=== PATIENT | male | born 1955 | race American Indian/Alaskan Native ===

== ENCOUNTER 2016-09-25 00:26 | Inpatient (IN) | payer OTHER ==
[2016-09-25] MEDS ORDERED: CATAPRES ONE (01:01)
[2016-09-25] MEDS ORDERED: CATAPRES PO ONE (01:22)
[2016-09-25 01:37] LABS: Basophils % (Auto) 1.3 % (0.0-1.8); Eosinophils % (Auto) 4.4 % (0.0-4.3); Hematocrit 43.2 % (35.5-45.6); Hemoglobin 14.3 gm/dl (11.8-15.2); Mean Corpuscular HGB Conc 33 % (32-34); Mean Corpuscular Hemoglobin 28 pg (28-32); Mean Corpuscular Volume 84 fl (84-94); Platelet Count 151 K/mm3 (140-440); Red Blood Count 5.15 M/mm3 (3.65-5.03); Red Cell Distribution Width 14.2 % (13.2-15.2); White Blood Count 3.1 K/mm3 (4.5-11.0)
[2016-09-25 01:57] LABS: Anion Gap 18 mmol/L; BUN/Creatinine Ratio 10.83; Blood Urea Nitrogen 13 mg/dL (9-20); Calcium 9.3 mg/dL (8.4-10.2); Carbon Dioxide 28 mmol/L (22-30); Chloride 100.8 mmol/L (98-107); Glucose 95 mg/dL (75-100); Potassium 4.3 mmol/L (3.6-5.0); Sodium 142 mmol/L (137-145)
[2016-09-25 03:13] LABS: Bilirubin,Urine NEG (Negative); Blood,Urine NEG (Negative); Ketones,Urine NEG (Negative); Leukocyte Esterase,Urine NEG (Negative); Mucus,Urine FEW /HPF; Nitrite,Urine NEG (Negative); Protein,Urine <15 mg/dL mg/dL (Negative); RBC,Urine < 1.0 /HPF (0.0-6.0); Urobilinogen,Urine < 2.0 mg/dL (<2.0); WBC,Urine < 1.0 /HPF (0.0-6.0)
[2016-09-25] MEDS ORDERED: ANTIVERT PO ONE (07:39)
--- NOTE | 2016-09-25 07:41 | Emergency Department Report ---
ED General Adult HPI - General Chief complaint: Dizziness Stated complaint: POSS HIGH BP Time Seen by Provider: 09/25/16 07:29 Source: patient, RN notes reviewed Mode of arrival: Ambulatory Limitations: No Limitations - History of Present Illness Initial comments: This is a 61-year-old male. He is previously unknown to me. He has a past medical history of hypertension. He takes HCTZ, atenolol. Patient typically follows with the [facility]. The patient presents to the ER with complaint of lightheadedness, dizziness, near syncope. There is no headache, neck pain, chest pain, abdominal pain or shortness of breath. There is no leg pain or leg swelling. No recent trips greater than 4 hours. No recent hospital admissions. He reports his sensation of lightheadedness and dizziness feels like "spinning." He further reports that his symptoms started this past Saturday after he purchased an [id number] supplemental herbal tea; nuwati tea. -: Gradual Severity scale (0 -10): 3 Consistency: intermittent Improves with: rest Worsens with: movement Associated Symptoms: syncope - Related Data Home Medications Medication Instructions Recorded Confirmed Last Taken Aspirin [Adult Low Dose Aspirin EC] 81 mg PO DAILY 09/25/16 09/25/16 09/24/16 Atenolol [Tenormin] 50 mg PO DAILY 09/25/16 09/25/16 09/24/16 Losartan [Cozaar] 100 mg PO QDAY 09/25/16 09/25/16 09/24/16 Tamsulosin [Flomax] 0.4 mg PO QDAY 09/25/16 09/25/16 09/24/16 hydrALAZINE [Apresoline] 75 mg PO BID 09/25/16 09/25/16 09/24/16 Allergies Allergy/AdvReac Type Severity Reaction Status Date / Time No Known Allergies Allergy Unverified 09/25/16 00:38 ED Review of Systems ROS: Stated complaint: POSS HIGH BP Other details as noted in HPI Constitutional: malaise. denies: fever Eyes: denies: eye discharge ENT: denies: throat pain Respiratory: denies: orthopnea Cardiovascular: syncope Gastrointestinal: denies: vomiting Genitourinary: denies: dysuria Musculoskeletal: denies: back pain Skin: denies: lesions Neurological: headache, abnormal gait, vertigo Psychiatric: denies: anxiety ED Past Medical Hx - Past Medical History Previous Medical History?: Yes Hx Hypertension: Yes Additional medical history: prostate - Surgical History Past Surgical History?: Yes Additional Surgical History: left rotator cuff - Social History Smoking Status: Never Smoker Substance Use Type: None - Medications Home Medications: Home Medications Medication Instructions Recorded Confirmed Last Taken Type Aspirin [Adult Low Dose Aspirin EC] 81 mg PO DAILY 09/25/16 09/25/16 09/24/16 History Atenolol [Tenormin] 50 mg PO DAILY 09/25/16 09/25/16 09/24/16 History Losartan [Cozaar] 100 mg PO QDAY 09/25/16 09/25/16 09/24/16 History Tamsulosin [Flomax] 0.4 mg PO QDAY 09/25/16 09/25/16 09/24/16 History hydrALAZINE [Apresoline] 75 mg PO BID 09/25/16 09/25/16 09/24/16 History ED Physical Exam - General Limitations: No Limitations General appearance: alert, in no apparent distress - Head Head exam: Present: atraumatic, normocephalic - Eye Eye exam: Present: normal appearance, PERRL, EOMI. Absent: nystagmus - ENT ENT exam: Present: normal exam, normal orophraynx, mucous membranes moist, TM's normal bilaterally, normal external ear exam - Neck Neck exam: Present: normal inspection, full ROM. Absent: tenderness, meningismus - Respiratory Respiratory exam: Present: normal lung sounds bilaterally. Absent: respiratory distress, wheezes, rales, rhonchi, stridor, chest wall tenderness, accessory muscle use, decreased breath sounds, prolonged expiratory - Cardiovascular Cardiovascular Exam: Present: regular rate, normal rhythm, normal heart sounds. Absent: bradycardia, tachycardia, irregular rhythm, systolic murmur, diastolic murmur, rubs, gallop - GI/Abdominal GI/Abdominal exam: Present: soft, normal bowel sounds. Absent: distended, tenderness, guarding, rebound, rigid, pulsatile mass - Rectal Rectal exam: Present: deferred - Extremities Exam Extremities exam: Present: normal inspection, full ROM, normal capillary refill. Absent: pedal edema, joint swelling, calf tenderness - Back Exam Back exam: Present: normal inspection, full ROM. Absent: tenderness, CVA tenderness (R), CVA tenderness (L), muscle spasm, paraspinal tenderness, vertebral tenderness - Neurological Exam Neurological exam: Present: alert, oriented X3, normal gait (there is no pass pointing. Normal [id number]. Borderline positive Romberg examination. Unable to participate with [id number].), other (Extraocular movements intact. Tongue midline. No facial droop. Facial sensation intact to light touch in the V1, V2, V3 distribution bilaterally. 5 and 5 strength in 4 extremities.. Sensation is intact to light touch in 4 extremities.). Absent: motor sensory deficit - Psychiatric Psychiatric exam: Present: normal affect, normal mood - Skin Skin exam: Present: warm, dry, intact, normal color. Absent: rash ED Course Vital Signs 09/25/16 09/25/16 09/25/16 00:38 01:25 02:55 Temperature 98.4 F 98.0 F Pulse Rate 67 67 64 Respiratory 18 18 Rate Blood Pressure 191/119 191/119 131/101 O2 Sat by Pulse 98 97 Oximetry 09/25/16 09/25/16 09/25/16 08:12 08:45 11:20 Temperature 98.6 F Pulse Rate 78 Respiratory 20 Rate Blood Pressure 174/68 O2 Sat by Pulse 100 Oximetry - Reevaluation(s) Reevaluation #1: 09/25/16 08:21 differential diagnosis: Peripheral vertigo, central vertigo, PRESS, hypertensive urgency, herbal medication side effects Assessment and plan: 61-year-old male with complaint of vertigo, lightheadedness , ataxia, near syncope, quite hypertensive. No pulmonary embolus or DVT risk factors, low risk by well's criteria, has a GCS of 15, but walks with an unsteady gait. No recent ACS risk stratification or echocardiogram, patient indicates he is not taking his herbal supplementation for a few days, case was discussed with the [place] [facility], and into ingredients that they were concerned about were yohimbine (which can cause hypertension) and cava cava (which can be nephrotoxic). Given that patient has an abnormal EKG, near syncope, poorly controlled blood pressure, unsteady gait, patient will be admit to the hospital to exclude structural cardiac disease, obtain better blood pressure control, and exclude subacute stroke. The patient is not a TPA candidate because his symptoms have been present for greater than 4.5 hours. They have been present for a few days. Reevaluation #2: 09/25/16 08:27 Spoke with Ta at [facility]. Gave list of ingredidents in OTC Herbal product, Tea Pee. Request ot order AST and ALT. Spoke with Dr. Fish. d/w [facility] Miguel, who accepts patient to her service ED Medical Decision Making - Lab Data Result diagrams: 09/25/16 01:22 09/25/16 01:22 Vital Signs 09/25/16 09/25/16 09/25/16 00:38 01:25 02:55 Temperature 98.4 F 98.0 F Pulse Rate 67 67 64 Respiratory 18 18 Rate Blood Pressure 191/119 191/119 131/101 O2 Sat by Pulse 98 97 Oximetry 09/25/16 08:12 Temperature Pulse Rate Respiratory 20 Rate Blood Pressure O2 Sat by Pulse 100 Oximetry Lab Results 09/25/16 09/25/16 09/25/16 Range/Units 01:22 01:22 07:44 WBC 3.1 L (4.5-11.0) K/mm3 RBC 5.15 H (3.65-5.03) M/mm3 Hgb 14.3 (11.8-15.2) gm/dl Hct 43.2 (35.5-45.6) % MCV 84 (84-94) fl MCH 28 (28-32) pg MCHC 33 (32-34) % RDW 14.2 (13.2-15.2) % Plt Count 151 (140-440) K/mm3 Lymph % (Auto) 30.7 (13.4-35.0) % Rankin % (Auto) 14.5 H (0.0-7.3) % Eos % (Auto) 4.4 H (0.0-4.3) % Baso % (Auto) 1.3 (0.0-1.8) % Lymph # 1.0 L (1.2-5.4) K/mm3 Rankin # 0.5 (0.0-0.8) K/mm3 Eos # 0.1 (0.0-0.4) K/mm3 Baso # 0.0 (0.0-0.1) K/mm3 Seg Neutrophils % 49.1 (40.0-70.0) % Seg Neutrophils # 1.5 L (1.8-7.7) K/mm3 Sodium 142 (137-145) mmol/L Potassium 4.3 (3.6-5.0) mmol/L Chloride 100.8 (98-107) mmol/L Carbon Dioxide 28 (22-30) mmol/L Anion Gap 18 mmol/L BUN 13 (9-20) mg/dL Creatinine 1.2 (0.8-1.5) mg/dL Estimated GFR > 60 ml/min BUN/Creatinine Ratio 10.83 % Glucose 95 (75-100) mg/dL Calcium 9.3 (8.4-10.2) mg/dL Magnesium 2.00 (1.7-2.3) mg/dL AST (5-40) units/L ALT (7-56) units/L Total Creatine Kinase 223 H (55-170) units/L Troponin T < 0.010 (0.00-0.029) ng/mL Urine Color (Yellow) Urine Turbidity (Clear) Urine pH (5.0-7.0) Ur Specific [place] (1.003-1.030) Urine Protein (Negative) mg/dL Urine Glucose (UA) (Negative) mg/dL Urine Ketones (Negative) mg/dL Urine Blood (Negative) Urine Nitrite (Negative) Urine Bilirubin (Negative) Urine Urobilinogen (<2.0) mg/dL Ur Leukocyte Esterase (Negative) Urine WBC (Auto) (0.0-6.0) /HPF Urine RBC (Auto) (0.0-6.0) /HPF Urine Mucus /HPF 09/25/16 09/25/16 Range/Units 07:44 Unknown WBC (4.5-11.0) K/mm3 RBC (3.65-5.03) M/mm3 Hgb (11.8-15.2) gm/dl Hct (35.5-45.6) % MCV (84-94) fl MCH (28-32) pg MCHC (32-34) % RDW (13.2-15.2) % Plt Count (140-440) K/mm3 Lymph % (Auto) (13.4-35.0) % Rankin % (Auto) (0.0-7.3) % Eos % (Auto) (0.0-4.3) % Baso % (Auto) (0.0-1.8) % Lymph # (1.2-5.4) K/mm3 Rankin # (0.0-0.8) K/mm3 Eos # (0.0-0.4) K/mm3 Baso # (0.0-0.1) K/mm3 Seg Neutrophils % (40.0-70.0) % Seg Neutrophils # (1.8-7.7) K/mm3 Sodium (137-145) mmol/L Potassium (3.6-5.0) mmol/L Chloride (98-107) mmol/L Carbon Dioxide (22-30) mmol/L Anion Gap mmol/L BUN (9-20) mg/dL Creatinine (0.8-1.5) mg/dL Estimated GFR ml/min BUN/Creatinine Ratio % Glucose (75-100) mg/dL Calcium (8.4-10.2) mg/dL Magnesium (1.7-2.3) mg/dL AST 20 (5-40) units/L ALT 17 (7-56) units/L Total Creatine Kinase (55-170) units/L Troponin T (0.00-0.029) ng/mL Urine Color Straw (Yellow) Urine Turbidity Clear (Clear) Urine pH 7.0 (5.0-7.0) Ur Specific [place] 1.006 (1.003-1.030) Urine Protein <15 mg/dl (Negative) mg/dL Urine Glucose (UA) Neg (Negative) mg/dL Urine Ketones Neg (Negative) mg/dL Urine Blood Neg (Negative) Urine Nitrite Neg (Negative) Urine Bilirubin Neg (Negative) Urine Urobilinogen < 2.0 (<2.0) mg/dL Ur Leukocyte Esterase Neg (Negative) Urine WBC (Auto) < 1.0 (0.0-6.0) /HPF Urine RBC (Auto) < 1.0 (0.0-6.0) /HPF Urine Mucus Few /HPF - EKG Data -: EKG Interpreted by Nm - EKG Data 09/25/16 08:24 normal sinus, 62 bpm, left axis deviation, normal intervals, high left ventricular voltage, not morphologically consistent with STEMI - Radiology Data Radiology results: report reviewed, image reviewed Noncontrast CT scan of the brain is negative for acute disease Critical care attestation.: If time is entered above; I have spent that time in minutes in the direct care of this critically ill patient, excluding procedure time. ED Disposition Clinical Impression: Near syncope, Ataxia, Hypertensive urgency Disposition: DC-09 OP ADMIT IP TO THIS HOSP Is pt being admited?: Yes Condition: Good
--- NOTE | 2016-09-25 08:02 | Cat Scan Report ---
CT HEAD WITHOUT CONTRAST: HISTORY: Dizziness, near syncope. Serial contiguous axial images were obtained through the cranium. Intravenous contrast material was not administered. The ventricles are normal in size and appearance. There is no mass effect or midline shift. Mild hypoattenuation in the subcortical white matter of both frontal lobes is noted and consistent with chronic ischemic change. No mass lesion or hemorrhage is seen. No extra-axial fluid collection. The mastoid air cells and visualized portions of the sinuses are normal. Mild chronic mucosal thickening in the ethmoid sinuses is noted. IMPRESSION: No acute intracranial process. Mild chronic white matter changes in the frontal lobes.
[2016-09-25 08:18] LABS: Alanine Aminotransferase 17 units/L (7-56)
[2016-09-25] MEDS ORDERED: BABY ASPIRIN PO ONE ×2 (08:28→09:39)
[2016-09-25] MEDS ORDERED: TYLENOL PO PRN (09:37)
[2016-09-25] MEDS ORDERED: DULCOLAX PR PRN (09:37)
[2016-09-25] MEDS ORDERED: ANTIVERT PO PRN (09:40)
--- NOTE | 2016-09-25 09:48 | Admit Criteria Form ---
Admission Criteria Documentation: DIZZINESS Clinical Indications for Admission to Inpatient Care (tunica-biloxi/check or initial the applicable condition/criteria) Admission is indicated for 1 or more of the following (1)(2)(3)(4)(5)(6) [ ]I. Acute bacterial labyrinthitis [ ]II. Cerebellar, brainstem, or cerebral ischemia or hemorrhage(7)(8) [ ]III. A suspected etiology that requires admission for treatment(9) [X ]IV. Inpatient admission required rather than observation care (Also use Dizziness: Observation Care as appropriate)because of ANY ONE of the following: (10)(11)(12)(13)(14) [ ]a) Hemodynamic instability [X ]b) Signs or symptoms that are severe or persistent (e.g., inability to ambulate after observation care treatment [ ]c) Vomiting that is severe or persistent [ ]d) Cardiac arrhythmias of immediate concern [ ]e) Severe (new) neurologic findings requiring inpatient care as indicated by 1 or more of the following(10)(11) [ ]i) Papilledema [ ]ii) Cerebral edema [ ]iii) Mass effect on CT scan [ ]iv) Cerebral bleeding, ischemia or vasospasm (15) [ ]v) Increased intracranial pressure or hydrocephalus(12) (13) [ ]f) Continuous IV infusion of anticoagulation, platelet inhibitor, vasoactive, or antiarrhythmic medication [ ]g) Cerebral bleeding, hydrocephalus, or vasospasm monitoring(16) [ ]h) Increased intracranial pressure or cerebral edema monitoring [ ]i) Other condition, treatment or monitoring requiring inpatient admission Extended stay beyond goal length of stay may be needed for evaluating and treating a specific cause of dizziness, including:(1) (35) [ ]a) Cardiac arrhythmias or conduction defects [ ]b) Myocardial ischemia [ ]c) New-onset vertebrobasilar vascular insufficiency (31) [ ]d) Acute neurologic event causing dizziness [ ]e) Head injury (36) [ ]f) Acute bacterial labyrinthitis (33) [ ]g) Severe acute vestibular neuronitis (19) [ ]h) Acute Meniere disease with intractable symptoms The original [facility] [employer] content created by Natalia Lamas has been revised. The portions of the content which have been revised are identified through the use of italic text or in bold, and [employer] [employer] has neither reviewed nor approved the modified material. All other unmodified content is copyright [facility]. Please see references footnoted in the original [facility] edition 2017 Admission Criteria Met: Yes
[2016-09-25] MEDS ORDERED: APRESOLINE IV ONE (10:00)
--- NOTE | 2016-09-25 10:04 | History and Physical Report ---
<NGUYEN WOODY - Last Filed: 09/25/16 14:42> History of Present Illness Date of examination: 09/25/16 Date of admission: 09/25/2016 Chief complaint: Lightheadedness and dizziness History of present illness: Patient is a 61-year-old -[place] male with past medical history hypertension and TIA. He is previously unknown to me. He has a past medical history of hypertension.Patient was in his usual state of health, which allows him to lead a fairly active life, until 2 days. He describe the fainting spell occurred this morning as he was getting out of bed, he fell back onto the bed so did not hurt himself. He told his what happened and she insisted that he come to the ER. He described the dizziness as "feeling like he was going to pass out." He doesn't remember what happened but thinks he lost consciousness for only a few seconds to minutes. No one was with him at the time to witness it. He did not experience a headache, chest pain, palpitations, or shortness of breath. He was not incontinent. His symptoms started this past Saturday after he purchased an [id number] supplemental herbal tea; nuwati tea. Past History Past Medical History: hypertension, other (TIA) Past Surgical History: No surgical history Social history: denies: smoking, alcohol abuse, prescription drug abuse, IV drug use Family history: CAD, hypertension Medications and Allergies Allergies Allergy/AdvReac Type Severity Reaction Status Date / Time No Known Allergies Allergy Unverified 09/25/16 00:38 Home Medications Medication Instructions Recorded Confirmed Last Taken Type Aspirin [Adult Low Dose Aspirin EC] 81 mg PO DAILY 09/25/16 09/25/16 09/24/16 History Atenolol [Tenormin] 50 mg PO DAILY 09/25/16 09/25/16 09/24/16 History Losartan [Cozaar] 100 mg PO QDAY 09/25/16 09/25/16 09/24/16 History Tamsulosin [Flomax] 0.4 mg PO QDAY 09/25/16 09/25/16 09/24/16 History hydrALAZINE [Apresoline] 75 mg PO BID 09/25/16 09/25/16 09/24/16 History Active Meds: Active Medications Acetaminophen (Tylenol) 650 mg PO Q4H PRN PRN Reason: Pain MILD(1-3)/Fever >100.5/BRANDON Bisacodyl (Dulcolax) 10 mg CO QDAY PRN PRN Reason: Constipation unrelieved by MOM Hydralazine HCl (Apresoline) 10 mg IV ONCE ONE Stop: 09/25/16 10:01 Meclizine HCl (Antivert) 25 mg PO Q8H PRN PRN Reason: Vertigo Review of Systems Constitutional: no weight loss, no weight gain, no chills, no sweats Ears, nose, mouth and throat: no ear pain, no ear discharge, no tinnitis, no decreased hearing, no nose pain, no nasal congestion Cardiovascular: lightheadedness, no chest pain, no orthopnea, no syncope (Pre- syncope) Respiratory: no cough, no cough with sputum, no excessive sputum Gastrointestinal: no nausea, no vomiting, no diarrhea Genitourinary Male: no dysuria, no hematuria, no flank pain, no discharge Rectal: no pain Musculoskeletal: no neck pain, no shooting arm pain, no arm numbness/tingling, no low back pain, no leg numbness/tingling Integumentary: no pruritis, no redness, no sores, no wounds, no jaundice Neurological: no head injury, no transient paralysis, no paralysis, no weakness , no parathesias, no numbness Psychiatric: no anxiety, no memory loss, no change in sleep habits, no sleep disturbances Endocrine: no cold intolerance, no heat intolerance, no polyphagia, no excessive thirst Hematologic/Lymphatic: no easy bruising, no easy bleeding Allergic/Immunologic: no urticaria, no allergic rhinitis, no wheezing Exam - Constitutional Vitals: Temp Pulse Resp BP Pulse Ox 98.6 F 64 20 131/101 100 09/25/16 08:45 09/25/16 02:55 09/25/16 08:12 09/25/16 02:55 09/25/16 08:12 General appearance: Present: no acute distress - EENT Eyes: Present: PERRL ENT: hearing intact - Neck Neck: Present: supple - Respiratory Respiratory effort: normal Respiratory: bilateral: CTA - Cardiovascular Heart rate: 78 Rhythm: regular Heart Sounds: Present: S1 & S2 - Extremities Extremities: no ischemia Peripheral Pulses: within normal limits - Abdominal General gastrointestinal: Present: soft, non-tender Male genitourinary: Present: deferred - Rectal Rectal Exam: deferred - Integumentary Integumentary: Present: clear, warm, dry - Musculoskeletal Musculoskeletal: strength equal bilaterally - Psychiatric Psychiatric: appropriate mood/affect - Neurologic Neurologic: CNII-XII intact - Allied Health Allied health notes reviewed: nursing Results - Labs CBC & Chem 7: 09/25/16 01:22 09/25/16 01:22 Labs: Laboratory Last Values WBC 3.1 K/mm3 (4.5-11.0) L 09/25/16 01:22 RBC 5.15 M/mm3 (3.65-5.03) H 09/25/16 01:22 Hgb 14.3 gm/dl (11.8-15.2) 09/25/16 01:22 Hct 43.2 % (35.5-45.6) 09/25/16 01:22 MCV 84 fl (84-94) 09/25/16 01:22 MCH 28 pg (28-32) 09/25/16 01:22 MCHC 33 % (32-34) 09/25/16 01:22 RDW 14.2 % (13.2-15.2) 09/25/16 01:22 Plt Count 151 K/mm3 (140-440) 09/25/16 01:22 Lymph % (Auto) 30.7 % (13.4-35.0) 09/25/16 01:22 Tama % (Auto) 14.5 % (0.0-7.3) H 09/25/16 01:22 Eos % (Auto) 4.4 % (0.0-4.3) H 09/25/16 01:22 Baso % (Auto) 1.3 % (0.0-1.8) 09/25/16 01:22 Lymph # 1.0 K/mm3 (1.2-5.4) L 09/25/16 01:22 Tama # 0.5 K/mm3 (0.0-0.8) 09/25/16 01:22 Eos # 0.1 K/mm3 (0.0-0.4) 09/25/16 01:22 Baso # 0.0 K/mm3 (0.0-0.1) 09/25/16 01:22 Seg Neutrophils % 49.1 % (40.0-70.0) 09/25/16 01:22 Seg Neutrophils # 1.5 K/mm3 (1.8-7.7) L 09/25/16 01:22 Sodium 142 mmol/L (137-145) 09/25/16 01:22 Potassium 4.3 mmol/L (3.6-5.0) 09/25/16 01:22 Chloride 100.8 mmol/L (98-107) 09/25/16 01:22 Carbon Dioxide 28 mmol/L (22-30) 09/25/16 01:22 Anion Gap 18 mmol/L 09/25/16 01:22 BUN 13 mg/dL (9-20) 09/25/16 01:22 Creatinine 1.2 mg/dL (0.8-1.5) 09/25/16 01:22 Estimated GFR > 60 ml/min 09/25/16 01:22 BUN/Creatinine Ratio 10.83 % 09/25/16 01:22 Glucose 95 mg/dL (75-100) 09/25/16 01:22 Calcium 9.3 mg/dL (8.4-10.2) 09/25/16 01:22 Magnesium 2.00 mg/dL (1.7-2.3) 09/25/16 07:44 AST 20 units/L (5-40) 09/25/16 07:44 ALT 17 units/L (7-56) 09/25/16 07:44 Total Creatine Kinase 223 units/L (55-170) H 09/25/16 07:44 Troponin T < 0.010 ng/mL (0.00-0.029) 09/25/16 01:22 Urine Color Straw (Yellow) 09/25/16 Unknown Urine Turbidity Clear (Clear) 09/25/16 Unknown Urine pH 7.0 (5.0-7.0) 09/25/16 Unknown Ur Specific Lottie 1.006 (1.003-1.030) 09/25/16 Unknown Urine Protein <15 mg/dl mg/dL (Negative) 09/25/16 Unknown Urine Glucose (UA) Neg mg/dL (Negative) 09/25/16 Unknown Urine Ketones Neg mg/dL (Negative) 09/25/16 Unknown Urine Blood Neg (Negative) 09/25/16 Unknown Urine Nitrite Neg (Negative) 09/25/16 Unknown Urine Bilirubin Neg (Negative) 09/25/16 Unknown Urine Urobilinogen < 2.0 mg/dL (<2.0) 09/25/16 Unknown Ur Leukocyte Esterase Neg (Negative) 09/25/16 Unknown Urine WBC (Auto) < 1.0 /HPF (0.0-6.0) 09/25/16 Unknown Urine RBC (Auto) < 1.0 /HPF (0.0-6.0) 09/25/16 Unknown Urine Mucus Few /HPF 09/25/16 Unknown - Imaging and Cardiology CT Scan - head: image reviewed (no acute intracranial process acute intracranial process.) MRI - head: image reviewed (no acute intracranial process. Mild chronic white matter changes) Assessment and Plan Assessment and plan: ASSESSMENT/PLAN Syncope Admit to Telemetry floor MRI of the brain and CT of the head revealed no acute intracranial process. Mild chronic white matter changes. VL bilateral Carotid duplex WNL Echocardiogram ordred IV fluid hydration Hypertension urgency Continue on home antihypertensive medicines IV hydralazine for SBP>160 Dizziness Stop herbal tea; nuwati tea. Started on Meclizine IV fluid Close monitor patient Possible TIA Normal MRI and CT of the head started on statin's and Asprin Neurology consulted DVT prophylaxis Lovenox Advance Directives: Yes (Full Code) VTE prophylaxis?: Chemical Contraindication Mechanical VTE Prophylaxis: Treatment Not Indicated Plan of care discussed with patient/family: Yes <CINDY MORELOS - Last Filed: 09/25/16 16:07> History of Present Illness Date of admission: 09/25/16 09:37 Medications and Allergies Active Meds: Active Medications Acetaminophen (Tylenol) 650 mg PO Q4H PRN PRN Reason: Pain MILD(1-3)/Fever >100.5/BRANDON Aspirin (Halfprin Ec) 81 mg PO DAILY OUMAR Atenolol (Tenormin) 50 mg PO DAILY OUMAR Bisacodyl (Dulcolax) 10 mg CO QDAY PRN PRN Reason: Constipation unrelieved by MOM Hydralazine HCl (Apresoline) 75 mg PO BID OUMAR Sodium Chloride (Nacl 0.9% 1000 Ml) 1,000 mls @ 75 mls/hr IV DIRECT OUMAR Losartan Potassium (Cozaar) 100 mg PO QDAY OUMAR Meclizine HCl (Antivert) 25 mg PO Q8H PRN PRN Reason: Vertigo Tamsulosin HCl (Flomax) 0.4 mg PO QDAY OUMAR Exam - Constitutional Vitals: Temp Pulse Resp BP Pulse Ox 98.6 F 78 18 131/77 98 09/25/16 08:45 09/25/16 15:00 09/25/16 15:00 09/25/16 14:51 09/25/16 14:51 Results - Labs CBC & Chem 7: 09/25/16 01:22 09/25/16 01:22 Labs: Laboratory Last Values WBC 3.1 K/mm3 (4.5-11.0) L 09/25/16 01:22 RBC 5.15 M/mm3 (3.65-5.03) H 09/25/16 01:22 Hgb 14.3 gm/dl (11.8-15.2) 09/25/16 01:22 Hct 43.2 % (35.5-45.6) 09/25/16 01:22 MCV 84 fl (84-94) 09/25/16 01:22 MCH 28 pg (28-32) 09/25/16 01:22 MCHC 33 % (32-34) 09/25/16 01:22 RDW 14.2 % (13.2-15.2) 09/25/16 01:22 Plt Count 151 K/mm3 (140-440) 09/25/16 01:22 Lymph % (Auto) 30.7 % (13.4-35.0) 09/25/16 01:22 Tama % (Auto) 14.5 % (0.0-7.3) H 09/25/16 01:22 Eos % (Auto) 4.4 % (0.0-4.3) H 09/25/16 01:22 Baso % (Auto) 1.3 % (0.0-1.8) 09/25/16 01:22 Lymph # 1.0 K/mm3 (1.2-5.4) L 09/25/16 01:22 Tama # 0.5 K/mm3 (0.0-0.8) 09/25/16 01:22 Eos # 0.1 K/mm3 (0.0-0.4) 09/25/16 01:22 Baso # 0.0 K/mm3 (0.0-0.1) 09/25/16 01:22 Seg Neutrophils % 49.1 % (40.0-70.0) 09/25/16 01:22 Seg Neutrophils # 1.5 K/mm3 (1.8-7.7) L 09/25/16 01:22 Sodium 142 mmol/L (137-145) 09/25/16 01:22 Potassium 4.3 mmol/L (3.6-5.0) 09/25/16 01:22 Chloride 100.8 mmol/L (98-107) 09/25/16 01:22 Carbon Dioxide 28 mmol/L (22-30) 09/25/16 01:22 Anion Gap 18 mmol/L 09/25/16 01:22 BUN 13 mg/dL (9-20) 09/25/16 01:22 Creatinine 1.2 mg/dL (0.8-1.5) 09/25/16 01:22 Estimated GFR > 60 ml/min 09/25/16 01:22 BUN/Creatinine Ratio 10.83 % 09/25/16 01:22 Glucose 95 mg/dL (75-100) 09/25/16 01:22 Calcium 9.3 mg/dL (8.4-10.2) 09/25/16 01:22 Magnesium 2.00 mg/dL (1.7-2.3) 09/25/16 07:44 AST 20 units/L (5-40) 09/25/16 07:44 ALT 17 units/L (7-56) 09/25/16 07:44 Total Creatine Kinase 223 units/L (55-170) H 09/25/16 07:44 Troponin T < 0.010 ng/mL (0.00-0.029) 09/25/16 01:22 Urine Color Straw (Yellow) 09/25/16 Unknown Urine Turbidity Clear (Clear) 09/25/16 Unknown Urine pH 7.0 (5.0-7.0) 09/25/16 Unknown Ur Specific Lottie 1.006 (1.003-1.030) 09/25/16 Unknown Urine Protein <15 mg/dl mg/dL (Negative) 09/25/16 Unknown Urine Glucose (UA) Neg mg/dL (Negative) 09/25/16 Unknown Urine Ketones Neg mg/dL (Negative) 09/25/16 Unknown Urine Blood Neg (Negative) 09/25/16 Unknown Urine Nitrite Neg (Negative) 09/25/16 Unknown Urine Bilirubin Neg (Negative) 09/25/16 Unknown Urine Urobilinogen < 2.0 mg/dL (<2.0) 09/25/16 Unknown Ur Leukocyte Esterase Neg (Negative) 09/25/16 Unknown Urine WBC (Auto) < 1.0 /HPF (0.0-6.0) 09/25/16 Unknown Urine RBC (Auto) < 1.0 /HPF (0.0-6.0) 09/25/16 Unknown Urine Mucus Few /HPF 09/25/16 Unknown Salicylates < 0.3 mg/dL (2.8-20.0) L 09/25/16 07:44 Acetaminophen < 15.0 ug/mL (10.0-30.0) 09/25/16 07:44 Assessment and Plan Assessment and plan: I saw and evaluated the patient. I agree with the findings and the plan of care as documented in the Nurse Practitioner's h/P note, patient is on statin and aspirin. Advance Directives: Yes VTE prophylaxis?: Chemical Plan of care discussed with patient/family: Yes
[2016-09-25] MEDS ORDERED: APRESOLINE ONE (10:59)
[2016-09-25] MEDS ORDERED: NACL 0.9% 1000 ML 1,000 ML IV SCH (11:00)
--- NOTE | 2016-09-25 12:42 | Magnetic Resonance Report ---
MRI OF THE BRAIN WITHOUT CONTRAST: HISTORY: CVA PROCEDURE: Multiplanar, multisequence MR imaging of the without IV contrast was performed. FINDINGS: Compared to the CT brain without contrast performed earlier the same day. Mild nonspecific chronic white matter changes are again identified. The remaining brain parenchyma is normal signal on all sequences. The lindsay-white interface is well defined. No evidence for acute ischemia, hemorrhage or mass. No chronic infarct or extra-axial fluid collection. The midline structures are central. The basal cisterns are patent. Normal ventricular size. The orbital cavities and sella turcica demonstrate no abnormality. The visualized paranasal sinuses and mastoid air cells are well aerated. IMPRESSION: Mild nonspecific chronic white matter changes. No acute intracranial process.
[2016-09-25] MEDS: APRESOLINE PO SCH (22:15)
[2016-09-26 07:51] LABS: Basophils % (Auto) 1.1 % (0.0-1.8); Hematocrit 40.5 % (35.5-45.6); Hemoglobin 13.4 gm/dl (11.8-15.2); Mean Corpuscular HGB Conc 33 % (32-34); Mean Corpuscular Hemoglobin 28 pg (28-32); Mean Corpuscular Volume 85 fl (84-94); Platelet Count 132 K/mm3 (140-440); Red Blood Count 4.79 M/mm3 (3.65-5.03); Red Cell Distribution Width 14.2 % (13.2-15.2); White Blood Count 3.1 K/mm3 (4.5-11.0)
[2016-09-26 08:09] LABS: Anion Gap 15 mmol/L; Blood Urea Nitrogen 15 mg/dL (9-20); Calcium 8.3 mg/dL (8.4-10.2); Carbon Dioxide 26 mmol/L (22-30); Chloride 106.4 mmol/L (98-107); Glucose 90 mg/dL (75-100); Potassium 3.8 mmol/L (3.6-5.0); Sodium 144 mmol/L (137-145)
[2016-09-26 08:30] LABS: Creatine Kinase 103 units/L (55-170)
[2016-09-26 08:47] LABS: Creatine Kinase MB < 1.0 ng/mL (0.0-4.0)
[2016-09-26] MEDS ORDERED: LEXISCAN IV ONE ×2 (09:31→09:33)
[2016-09-26] MEDS ORDERED: COZAAR PO SCH (10:00)
[2016-09-26] MEDS ORDERED: NON-FORMULARY (Losartan [Cozaar] 100 MG) PO SCH (10:00)
[2016-09-26] MEDS ORDERED: HALFPRIN EC PO SCH (10:00)
[2016-09-26] MEDS ORDERED: FLOMAX PO SCH (10:00)
[2016-09-26] MEDS ORDERED: TENORMIN PO SCH (10:00)
--- NOTE | 2016-09-26 10:47 | Discharge Summary ---
Providers - Providers Date of Admission: 09/25/16 09:37 Date of discharge: 09/26/16 Attending physician: CINDY MORELOS MD 09/25/16 13:37 Consult to Physician [CONS] Routine Consulting Provider: VLAD BAUER Reason For Exam: Possible TIA Place consult to:: yes Notified:: y Phone number called:: yes Was contact made?: Yes Primary care physician: GONZÁLEZ HAWTHORNE DO Hospitalization Reason for admission: Near syncope Condition: Good Pertinent studies: CT, MRI head no acute intracranial findings Echo normal findings Carotid Doppler less than 50% stenosis Myocardial perfusion stress test: Dual-isotope inferoseptal reversibility suggestive of ischemia in this area. Hospital course: Patient is a 61-year-old -[place] male with past medical history hypertension and TIA. He has a past medical history of hypertension.Patient was in his usual state of health, until 2 days. He describe the fainting spell occurred this morning as he was getting out of bed, he fell back onto the bed so did not hurt himself. He told his what happened and she insisted that he come to the ER. He described the dizziness as "feeling like he was going to pass out." He doesn't remember what happened but thinks he lost consciousness for only a few seconds to minutes. No one was with him at the time to witness it. He did not experience a headache, chest pain, palpitations, or shortness of breath. He was not incontinent. His symptoms started this past Saturday after he purchased an [id number] supplemental herbal tea; nuwati tea. Patient was admitted to the floor was given IV fluids, he was working with his CT head, MRI, carotid and echo which were all normal. He says stress test was done and the result is as stated above. Cardiology said it is mild abnormality and advised him to have follow up [facility]. Patient was stable in his stay. Patient was hemodynamically stable at the time of discharge. Patient's questions and concerns were addressed at the bedside. Patient's medications were reviewed and updated at the time of discharge. He is advised to follow-up with his primary care physician and corporate specialist. Patient was discharged home. He is advised to stop to take an over the counter medications without consulting his doctor. Disposition: - TO HOME OR SELFCARE Time spent for discharge: 31 MINUTES - Discharge Diagnoses (1) Ataxia Status: Acute (2) Hypertensive urgency Status: Acute (3) Near syncope Status: Acute Core Measure Documentation - Palliative Care Palliative Care/ Comfort Measures: Not Applicable - Core Measures Any of the following diagnoses?: none Exam - Physical Exam Narrative exam: Not in cardiopulmonary distress. The patient appeared well nourished and normally developed. Vital signs as documented. Head exam is unremarkable. No scleral icterus . Neck is without jugular venous distension, thyromegaly, or carotid bruits. Lungs are clear to auscultation. Cardiac exam reveals regular rate and Rhythm. First and second heart sounds normal. No murmurs, rubs or gallops. Abdominal exam reveals normal bowel sounds, no masses, no organomegaly and no aortic enlargement. Extremities are nonedematous and both femoral and pedal pulses are normal. PRINCIPAL STATISTICAL PROGRAMMER: Alert and oriented 3. No focal weakness. - Constitutional Vitals: Temp Pulse Resp BP Pulse Ox 98 F 86 19 191/97 99 09/26/16 05:19 09/26/16 09:47 09/26/16 05:19 09/26/16 09:47 09/26/16 05:19 Plan Activity: no restrictions Weight Bearing Status: Full Weight Bearing Diet: low cholesterol, low salt Follow up with: GONZÁLEZ HAWTHORNE DO [Primary Care Provider] - 7 Days Forms: Work/School Release Form Prescriptions: AtorvaSTATin [Lipitor] 40 mg PO QHS #30 tablet
--- NOTE | 2016-09-26 12:00 | Consultation ---
History of Present Illness - Reason for Consult Consult date: 09/26/16 stroke - History of Present Illness I suspect the syncope was vasovagal based on description of the event- he did have large amount of " herbal tea" this can trigger the problem as salt over load explained to patient as to how symptoms can be managed when over the MRI report / viewed the scan and this is chronic due to HTN no acute stroke plan d/c is OK by me Past History Past Medical History: hypertension, other (TIA) Past Surgical History: No surgical history Social history: denies: smoking, alcohol abuse, prescription drug abuse, IV drug use Family history: CAD, hypertension Medications and Allergies Allergies Allergy/AdvReac Type Severity Reaction Status Date / Time No Known Allergies Allergy Unverified 09/25/16 00:38 Home Medications Medication Instructions Recorded Confirmed Last Taken Type Aspirin [Adult Low Dose Aspirin EC] 81 mg PO DAILY 09/25/16 09/25/16 09/24/16 History Atenolol [Tenormin] 50 mg PO DAILY 09/25/16 09/25/16 09/24/16 History Losartan [Cozaar] 100 mg PO QDAY 09/25/16 09/25/16 09/24/16 History Tamsulosin [Flomax] 0.4 mg PO QDAY 09/25/16 09/25/16 09/24/16 History hydrALAZINE [Apresoline TAB] 75 mg PO BID 09/25/16 09/25/16 09/24/16 History AtorvaSTATin [Lipitor] 40 mg PO QHS #30 tablet 09/26/16 Unknown Rx Active Meds: Active Medications Acetaminophen (Tylenol) 650 mg PO Q4H PRN PRN Reason: Pain MILD(1-3)/Fever >100.5/BRANDON Aspirin (Halfprin Ec) 81 mg PO DAILY OUMAR Atenolol (Tenormin) 50 mg PO DAILY COUNTS INCLUDE 234 BEDS AT THE [facility] Atorvastatin Calcium (Lipitor) 40 mg PO QHS COUNTS INCLUDE 234 BEDS AT THE [facility] Last Admin: 09/25/16 22:15 Dose: 40 mg Bisacodyl (Dulcolax) 10 mg DC QDAY PRN PRN Reason: Constipation unrelieved by MOM Hydralazine HCl (Apresoline) 75 mg PO BID COUNTS INCLUDE 234 BEDS AT THE [facility] Last Admin: 09/25/16 22:15 Dose: 75 mg Sodium Chloride (Nacl 0.9% 1000 Ml) 1,000 mls @ 75 mls/hr IV DIRECT OUMAR Losartan Potassium (Cozaar) 100 mg PO QDAY OUMAR Meclizine HCl (Antivert) 25 mg PO Q8H PRN PRN Reason: Vertigo Tamsulosin HCl (Flomax) 0.4 mg PO QDAY OUMAR Exam - Constitutional Vitals: Temp Pulse Resp BP Pulse Ox 98 F 86 19 191/97 99 09/26/16 05:19 09/26/16 09:47 09/26/16 05:19 09/26/16 09:47 09/26/16 05:19 Results - Labs CBC & Chem 7: 09/26/16 06:47 09/26/16 06:47 Labs: Abnormal lab results 09/26/16 09/26/16 Range/Units 06:47 06:47 WBC 3.1 L (4.5-11.0) K/mm3 Plt Count 132 L (140-440) K/mm3 [place] % (Auto) 12.7 H (0.0-7.3) % Eos % (Auto) 5.0 H (0.0-4.3) % Lymph # 0.9 L (1.2-5.4) K/mm3 Seg Neutrophils # 1.7 L (1.8-7.7) K/mm3 Calcium 8.3 L (8.4-10.2) mg/dL
[2016-09-26] MEDS: APRESOLINE PO SCH (12:25)
[2016-09-26 12:27] VITALS: BP 160/95
--- NOTE | 2016-09-26 22:57 | Treadmill Report ---
NUCLEAR STRESS TEST The patient was brought to the Cardiology lab and he had a Lexiscan stress test. The patient tolerated the procedure well. Post-stress images revealed fairly homogeneous distribution of the isotope. Reduced perfusion is noted in the inferior and inferoseptal regions. This is somewhat small area. Accompanying gated study shows good systolic function with a calculated ejection fraction of 64%. IMPRESSION: Dual isotope study shows inferoseptal reversibility suggestive of ischemia in this area. Accompanying gated study shows ejection fraction of 64%. Suggest clinical correlation. JOB# [id number] KBM/NTS
--- NOTE | 2016-10-02 09:24 | Vascular Lab Report ---
CAROTID DUPLEX STUDY: RIGHT PSVEDV CCA PROX:8624 CCA DIST:7126 ICA PROX:5322 ICA MID:7030 ICA DIST:6928 ECA: 63 VERT: 42 14 LEFT PSVEDV CCA PROX:46239 CCA DIST:7124 ICA PROX:4917 ICA MID:5325 ICA DIST:3815 ECA: 61 VERT: 54 23 REASON FOR EXAM: Carotid artery stenosis/pre-syncope. COMMENTS ON THE RIGHT: Doppler frequency analysis is consistent with 16 to 49 percent diameter reduction of the internal carotid artery. Minimal amount of plaque is seen. The common carotid artery is patent. The external carotid artery is patent. The vertebral artery has antegrade flow. COMMENTS ON THE LEFT: Doppler frequency analysis is consistent with 16 to 49 percent diameter reduction of the internal carotid artery. Minimal amount of plaque is seen. The common carotid artery is patent. The external carotid artery is patent. The vertebral artery has antegrade flow. IMPRESSION: Less than 50% diameter reduction in the internal carotid arteries bilaterally. Consider repeat carotid artery duplex in 12 months.
== END 2016-09-26 13:35 | disposition home or self-care (01) | DRG 312 ==
LOC: ED 00:26 → 4A 09:37
PROVIDERS: ADMIT Internal Medicine; ATTEND Internal Medicine
DX: R55 Syncope and collapse (principal); I16.0 Hypertensive urgency; R27.0 Ataxia, unspecified; Z82.49 Family history of ischemic heart disease and other diseases of the circulatory system; Z86.73 Personal history of transient ischemic attack (TIA), and cerebral infarction without residual deficits; Z79.82 Long term (current) use of aspirin; Z79.899 Other long term (current) drug therapy
CPT/HCPCS: 36415; 70450; 70551; 78452; 80048; 80061; 80320; 81001; 82550; 82553; 83735; 84450; 84460; 84484; 85025; 93005; 93010; 93017; 93306; 93880; 96374; A9270-GY; A9502; G0480; J0360; J2785; J7030

== ENCOUNTER 2017-04-22 23:02 | Emergency (ER) | payer SELFPAY ==
[2017-04-22 23:40] LABS: Basophils % (Auto) 1.2 % (0.0-1.8); Eosinophils # (Auto) 0.1 K/mm3 (0.0-0.4); Eosinophils % (Auto) 3.7 % (0.0-4.3); Hematocrit 40.2 % (35.5-45.6); Hemoglobin 13.2 gm/dl (11.8-15.2); Lymphocytes # (Auto) 0.9 K/mm3 (1.2-5.4); Mean Corpuscular HGB Conc 33 % (32-34); Mean Corpuscular Hemoglobin 27 pg (28-32); Mean Corpuscular Volume 84 fl (84-94); Monocytes # (Auto) 0.5 K/mm3 (0.0-0.8); Monocytes % (Auto) 15.3 % (0.0-7.3); Platelet Count 165 K/mm3 (140-440); Red Blood Count 4.81 M/mm3 (3.65-5.03); Red Cell Distribution Width 14.3 % (13.2-15.2)
[2017-04-22 23:58] LABS: Alanine Aminotransferase 26 units/L (7-56); Albumin 4.1 g/dL (3.9-5); BUN/Creatinine Ratio 13; Blood Urea Nitrogen 14 mg/dL (9-20); Calcium 9.1 mg/dL (8.4-10.2); Hemolysis Index 5
[2017-04-23 00:01] LABS: INR 0.95 (0.87-1.13)
[2017-04-23 00:02] LABS: Partial Thromboplastin Time 24.1 Sec. (24.2-36.6)
[2017-04-23 02:26] LABS: Bilirubin,Urine NEG (Negative); Blood,Urine LG (Negative); Color,Urine Yellow (Yellow); Protein,Urine <15 mg/dL mg/dL (Negative); Urobilinogen,Urine < 2.0 mg/dL (<2.0)
[2017-04-23 02:28] LABS: RBC,Urine > 182.0 /HPF (0.0-6.0)
--- NOTE | 2017-04-23 03:22 | Emergency Department Report ---
HPI - General Chief Complaint: Urogenital-Male Time Seen by Provider: 04/23/17 03:09 - HPI HPI: Room 8 The patient is a 62-year-old male presenting with a chief complaint of hematuria. The patient states today he developed hematuria. Patient denies dysuria but states he has "slight tingling" while urinating. Patient denies abdominal pain or back pain. Patient denies any history of fever. Patient denies any history of recent trauma Location: [See above] Duration: [See above] Quality: Painless Severity: [See above] Modifying factors: [see above] Context: [see above] Mode of transportation: [not driving] ED Past Medical Hx - Past Medical History Hx Hypertension: Yes Additional medical history: BPH, PUD - Surgical History Additional Surgical History: left rotator cuff - Family History Family history: no significant - Social History Smoking Status: Former Smoker (none times 40 years) Substance Use Type: None (denies illicit drug use) - Medications Home Medications: Home Medications Medication Instructions Recorded Confirmed Last Taken Type Aspirin [Adult Low Dose Aspirin EC] 81 mg PO DAILY 09/25/16 04/22/17 09/24/16 History Atenolol [Tenormin] 50 mg PO DAILY 09/25/16 04/22/17 09/24/16 History Losartan [Cozaar] 100 mg PO QDAY 09/25/16 09/25/16 09/24/16 History Tamsulosin [Flomax] 0.4 mg PO QDAY 09/25/16 04/22/17 09/24/16 History hydrALAZINE [Apresoline TAB] 50 mg PO BID 09/25/16 04/22/17 09/24/16 History AtorvaSTATin [Lipitor] 10 mg PO QHS 04/22/17 04/22/17 Unknown History Finasteride 5 mg PO DAILY 04/22/17 04/22/17 Unknown History HCTZ 25 mg PO DAILY 04/22/17 04/22/17 Unknown History Sulfamethoxazole/Trimethoprim 1 each PO BID #14 tablet 04/23/17 Unknown Rx [Bactrim DS TAB] ED Review of Systems ROS: Stated complaint: BLOOD IN URINE Other details as noted in HPI Constitutional: denies: fever Gastrointestinal: denies: abdominal pain Genitourinary: hematuria. denies: dysuria Musculoskeletal: denies: back pain Physical Exam - Physical Exam Vital Signs: Vital Signs 04/22/17 04/23/17 04/23/17 23:08 03:07 03:11 Temperature 97.9 F 97.9 F Pulse Rate 67 60 Respiratory 16 20 20 Rate Blood Pressure 216/98 Blood Pressure 173/101 [Left] O2 Sat by Pulse 98 99 99 Oximetry Physical Exam: GENERAL: The patient is well-developed well-nourished male lying on stretcher not appearing to be in acute distress. [] HEENT: Normocephalic. Atraumatic. Extraocular motions are intact. Patient has moist mucous membranes. NECK: Supple. Trachea midline CHEST/LUNGS: Clear to auscultation. There is no respiratory distress noted. HEART/CARDIOVASCULAR: Regular. There is no tachycardia. There is no gallop rub or murmur. ABDOMEN: Abdomen is soft, nontender. Patient has normal bowel sounds. There is no abdominal distention. SKIN: There is no rash. There is no edema. There is no diaphoresis. NEURO: The patient is awake, alert, and oriented. The patient is cooperative. The patient has normal speech MUSCULOSKELETAL:There is no evidence of acute injury. ED Course Vital Signs 04/22/17 04/23/17 04/23/17 23:08 03:07 03:11 Temperature 97.9 F 97.9 F Pulse Rate 67 60 Respiratory 16 20 20 Rate Blood Pressure 216/98 Blood Pressure 173/101 [Left] O2 Sat by Pulse 98 99 99 Oximetry ED Medical Decision Making - Lab Data Result diagrams: 04/22/17 23:28 04/22/17 23:28 Laboratory Tests 04/22/17 04/22/17 04/22/17 23:28 23:28 23:28 WBC 3.1 L RBC 4.81 Hgb 13.2 Hct 40.2 MCV 84 MCH 27 L MCHC 33 RDW 14.3 Plt Count 165 Lymph % (Auto) 29.0 Leon % (Auto) 15.3 H Eos % (Auto) 3.7 Baso % (Auto) 1.2 Lymph # 0.9 L Leon # 0.5 Eos # 0.1 Baso # 0.0 Seg Neutrophils % 50.8 Seg Neutrophils # 1.6 L PT 13.1 INR 0.95 APTT 24.1 L Sodium 141 Potassium 3.9 Chloride 100.8 Carbon Dioxide 30 Anion Gap 14 BUN 14 Creatinine 1.1 Estimated GFR > 60 BUN/Creatinine Ratio 13 Glucose 127 H Calcium 9.1 Total Bilirubin 0.30 AST 29 ALT 26 Alkaline Phosphatase 92 Total Protein 6.8 Albumin 4.1 Albumin/Globulin Ratio 1.5 Urine Color Urine Turbidity Urine pH Ur Specific [place] Urine Protein Urine Glucose (UA) Urine Ketones Urine Blood Urine Nitrite Urine Bilirubin Urine Urobilinogen Ur Leukocyte Esterase Urine WBC (Auto) Urine RBC (Auto) 04/23/17 02:03 WBC RBC Hgb Hct MCV MCH MCHC RDW Plt Count Lymph % (Auto) Leon % (Auto) Eos % (Auto) Baso % (Auto) Lymph # Leon # Eos # Baso # Seg Neutrophils % Seg Neutrophils # PT INR APTT Sodium Potassium Chloride Carbon Dioxide Anion Gap BUN Creatinine Estimated GFR BUN/Creatinine Ratio Glucose Calcium Total Bilirubin AST ALT Alkaline Phosphatase Total Protein Albumin Albumin/Globulin Ratio Urine Color Yellow Urine Turbidity Clear Urine pH 8.0 H Ur Specific [place] 1.009 Urine Protein <15 mg/dl Urine Glucose (UA) Neg Urine Ketones Neg Urine Blood Lg Urine Nitrite Neg Urine Bilirubin Neg Urine Urobilinogen < 2.0 Ur Leukocyte Esterase Neg Urine WBC (Auto) 6.0 Urine RBC (Auto) > 182.0 - Radiology Data Radiology results: report reviewed (CT abdomen and pelvis), image reviewed (CT abdomen and pelvis) FINAL REPORT EXAM: CT ABDOMEN PELVIS WO CON HISTORY: hematuria TECHNIQUE: Routine axial imaging was obtained of the abdomen and pelvis without oral or IV contrast. Sagittal and coronal reconstructions were reviewed. FINDINGS: Images through the lung bases do not show any infiltrates or effusions. There is a very small pericardial effusion. There is a small hiatal hernia. The liver, gallbladder, pancreas, spleen, and adrenal glands appear normal. The kidneys reveal several cortical cysts in the right kidney measuring up to 4.2 cm in diameter. The kidneys show no evidence of stones or hydronephrosis. The bowel loops are normal in caliber and course. The appendix is not enlarged. There is no evidence of free fluid or adenopathy. In the pelvis there is diffuse generalized thickening of the bladder wall. This is suggestive of a generalized cystitis. The prostate gland is at the upper limits of normal in size. There is no evidence of adenopathy. There are phleboliths along the floor pelvis. The skeletal structures reveal multilevel disc degeneration in the lumbar spine. IMPRESSION: Generalized thickening of the bladder wall as described suspicious for cystitis. Benign cortical cysts in the right kidney. No evidence of renal stones or hydronephrosis. Normal appendix. Small pericardial effusion. Multilevel disc degeneration in the lumbar spine Transcribed By: RB Dictated By: ANA CHERRY MD Electronically Authenticated By: ANA CHERRY MD Signed Date/Time: 04/23/17401 DD/ 1 TD/TT: 04/23/17401 - Differential Diagnosis bladder mass, UTI, renal colic, renal lesion, prostate CA Critical care attestation.: If time is entered above; I have spent that time in minutes in the direct care of this critically ill patient, excluding procedure time. ED Disposition Clinical Impression: Hematuria, Bladder wall thickening Disposition: - TO HOME OR SELFCARE Is pt being admited?: No Does the pt Need Aspirin: No Condition: Stable Instructions: Urinary Tract Infection in Men (ED), Acute Hematuria (ED) Additional Instructions: Return to the emergency department immediately should you develop worsening symptoms, fever, inability to tolerate food or liquid or any other concerns. Prescriptions: Sulfamethoxazole/Trimethoprim [Bactrim DS TAB] 1 each PO BID #14 tablet Referrals: [facility] [Outside] - MARSHA (It is important that she follow up with your urologist for further evaluation) Time of Disposition: 04:17
--- NOTE | 2017-04-23 04:06 | Cat Scan Report ---
FINAL REPORT EXAM: CT ABDOMEN PELVIS WO CON HISTORY: hematuria TECHNIQUE: Routine axial imaging was obtained of the abdomen and pelvis without oral or IV contrast. Sagittal and coronal reconstructions were reviewed. FINDINGS: Images through the lung bases do not show any infiltrates or effusions. There is a very small pericardial effusion. There is a small hiatal hernia. The liver, gallbladder, pancreas, spleen, and adrenal glands appear normal. The kidneys reveal several cortical cysts in the right kidney measuring up to 4.2 cm in diameter. The kidneys show no evidence of stones or hydronephrosis. The bowel loops are normal in caliber and course. The appendix is not enlarged. There is no evidence of free fluid or adenopathy. In the pelvis there is diffuse generalized thickening of the bladder wall. This is suggestive of a generalized cystitis. The prostate gland is at the upper limits of normal in size. There is no evidence of adenopathy. There are phleboliths along the floor pelvis. The skeletal structures reveal multilevel disc degeneration in the lumbar spine. IMPRESSION: Generalized thickening of the bladder wall as described suspicious for cystitis. Benign cortical cysts in the right kidney. No evidence of renal stones or hydronephrosis. Normal appendix. Small pericardial effusion. Multilevel disc degeneration in the lumbar spine
[2017-04-23 04:40] VITALS: BP 165/98
== END 2017-04-23 04:41 | disposition home or self-care (01) ==
LOC: ED 23:02
DX: R31.9 Hematuria, unspecified (principal); N32.89 Other specified disorders of bladder; I10 Essential (primary) hypertension; N40.0 Benign prostatic hyperplasia without lower urinary tract symptoms; Z87.891 Personal history of nicotine dependence
CPT/HCPCS: 36415; 74176; 80053; 81001; 85025; 85610; 85730; 99284

== ENCOUNTER 2018-02-10 15:57 | Emergency (ER) | payer OTHER ==
[2018-02-10] MEDS ORDERED: NORCO 5/325 PO STA (17:24)
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
[2018-02-10 21:42] VITALS: BP 140/80
== END 2018-02-10 21:42 | disposition home or self-care (01) ==
LOC: ED 15:57
DX: S09.8XXA Other specified injuries of head, initial encounter (principal); M54.5 Low back pain; I10 Essential (primary) hypertension; K27.9 Peptic ulcer, site unspecified, unspecified as acute or chronic, without hemorrhage or perforation; N40.0 Benign prostatic hyperplasia without lower urinary tract symptoms; Z79.899 Other long term (current) drug therapy; V49.49XA Driver injured in collision with other motor vehicles in traffic accident, initial encounter; Y93.89 Activity, other specified; Y99.8 Other external cause status; Y92.410 Unspecified street and highway as the place of occurrence of the external cause
CPT/HCPCS: 70450; 72100